=== PATIENT | male | born 2000 | race Caucasian/White ===

== ENCOUNTER 2019-03-08 14:17 | Emergency (ER) | payer BC ==
[2019-03-08 14:30] VITALS: O2SAT 97
--- NOTE | 2019-03-08 14:38 | ED.PDOC ---
History of Present Illness - General Chief Complaint: General Stated Complaint: chest tightness, anxiet Time Seen by Provider: 03/08/19 14:35 Source: patient Exam Limitations: no limitations - History of Present Illness Initial Comments: THIS PATIENT COMES TO THE ED WITH ANXIETY AND A HX OF CHEST PRESSURE ONSET TWO DAYS. HE SAYS THAT THE PRESSURE IS AT 2/10. HE WENT TO SEE HIS PCP AND WAS TOLD TO COME HERE. HE HAS A HX OF ANXIETY AND TAKES NO MEDS. Timing/Duration: other - TWO DAYS Improving Factors: nothing Worsening Factors: nothing Associated Symptoms: chest pain Allergies/Adverse Reactions: Allergies NO KNOWN ALLERGY Allergy (Verified 03/08/19 14:25) Review of Systems - Review of Systems Constitutional: States: no symptoms reported EENTM: States: no symptoms reported Respiratory: States: no symptoms reported Cardiology: States: chest pain Gastrointestinal/Abdominal: States: no symptoms reported Genitourinary: States: no symptoms reported Musculoskeletal: States: no symptoms reported Skin: States: no symptoms reported Neurological: States: no symptoms reported Endocrine: States: no symptoms reported Hematologic/Lymphatic: States: no symptoms reported Past Medical History (General) - Patient Medical History Hx Seizures: No Hx Stroke: No Hx Asthma: No Hx Cardiac Disorders: No Hx Thyroid Disease: No Surgical History: no surgical history - Social History Hx Tobacco Use: Yes Family Medical History - Family History Mother Family History: No Known Physical Exam - Physical Exam General Appearance: Anxious Eye Exam: bilateral normal Ears, Nose, Throat: normal ENT inspection Neck: non-tender, full range of motion, normal inspection Respiratory: chest non-tender, lungs clear Cardiovascular/Chest: normal peripheral pulses, regular rate, rhythm, no gallop, no murmur Gastrointestinal/Abdominal: normal bowel sounds, non tender Rectal Exam: deferred Back Exam: normal inspection Extremity: normal range of motion Neurologic: alert, oriented x 3 Progress - Progress Progress: 03/08/19 15:41 EKG: HR OF 127, ND INTERVAL OF 136, QRS OF 90, QTC OF 433, AXES OF 43. I MPRESSION: SINUS TACHYCARDIA. - Results/Orders Results/Orders: Laboratory Results WBC 8.2 K/mm3 (4.8-10.8) 03/08/19 14:59 RBC 6.04 M/mm3 (4.70-6.10) 03/08/19 14:59 Hgb 17.2 gm/dL (14.0-18.0) 03/08/19 14:59 Hct 50.2 % (42.0-52.0) 03/08/19 14:59 MCV 83.3 fl (80.0-94.0) 03/08/19 14:59 MCH 28.5 pg (27.0-31.0) 03/08/19 14:59 MCHC 34.2 g/dL (33.0-37.0) 03/08/19 14:59 RDW 13.7 % (11.5-14.5) 03/08/19 14:59 Plt Count 267 K/mm3 (130-400) 03/08/19 14:59 MPV 8.3 fl (7.40-10.4) 03/08/19 14:59 Absolute Neuts (auto) 5.60 K/uL (1.8-6.8) 03/08/19 14:59 Absolute Lymphs (auto) 1.60 K/uL (1.0-3.4) 03/08/19 14:59 Absolute Monos (auto) 0.70 K/uL (0.2-0.8) 03/08/19 14:59 Absolute Eos (auto) 0.10 K/uL (0.0-0.4) 03/08/19 14:59 Absolute Basos (auto) 0.10 K/uL (0.0-0.1) 03/08/19 14:59 Neutrophils % 69.0 % (42.0-78.0) 03/08/19 14:59 Lymphocytes % 20.1 % (20.0-50.0) 03/08/19 14:59 Monocytes % 8.5 % (2.0-9.0) 03/08/19 14:59 Eosinophils % 1.7 % (1.0-5.0) 03/08/19 14:59 Basophils % 0.7 % (0.0-2.0) 03/08/19 14:59 D-Dimer, Quantitative 0.26 mg/L FEU (0-0.49) 03/08/19 14:59 Sodium 139 mmol/L (135-145) 03/08/19 14:59 Potassium 3.9 mmol/L (3.6-5.0) 03/08/19 14:59 Chloride 102 mmol/L (101-111) 03/08/19 14:59 Carbon Dioxide 26 mmol/L (21-31) 03/08/19 14:59 Anion Gap 14.9 (12-18) 03/08/19 14:59 BUN 17 mg/dL (7-18) 03/08/19 14:59 Creatinine 1.09 mg/dL (0.6-1.3) 03/08/19 14:59 BUN/Creatinine Ratio 15.6 (10-20) 03/08/19 14:59 Random Glucose 87 mg/dL (70-105) 03/08/19 14:59 Serum Osmolality 278.4 mOsm/L (275-295) 03/08/19 14:59 Calcium 10.1 mg/dL (8.4-10.2) 03/08/19 14:59 Total Bilirubin 0.4 mg/dL (0.2-1.0) 03/08/19 14:59 AST 32 IU/L (10-42) 03/08/19 14:59 ALT 61 IU/L (10-60) H 03/08/19 14:59 Alkaline Phosphatase 69 IU/L (180-700) L 03/08/19 14:59 Troponin I < 0.02 ng/mL (0.01-0.05) 03/08/19 14:59 Serum Total Protein 8.4 gm/dL (6.4-8.2) H 03/08/19 14:59 Albumin 4.6 g/dl (3.2-5.5) 03/08/19 14:59 Globulin 3.8 gm/dL (2.3-3.5) H 03/08/19 14:59 Albumin/Globulin Ratio 1.2 (1.1-1.9) 03/08/19 14:59 Laboratory Results WBC 8.2 K/mm3 (4.8-10.8) 03/08/19 14:59 RBC 6.04 M/mm3 (4.70-6.10) 03/08/19 14:59 Hgb 17.2 gm/dL (14.0-18.0) 03/08/19 14:59 Hct 50.2 % (42.0-52.0) 03/08/19 14:59 MCV 83.3 fl (80.0-94.0) 03/08/19 14:59 MCH 28.5 pg (27.0-31.0) 03/08/19 14:59 MCHC 34.2 g/dL (33.0-37.0) 03/08/19 14:59 RDW 13.7 % (11.5-14.5) 03/08/19 14:59 Plt Count 267 K/mm3 (130-400) 03/08/19 14:59 MPV 8.3 fl (7.40-10.4) 03/08/19 14:59 Absolute Neuts (auto) 5.60 K/uL (1.8-6.8) 03/08/19 14:59 Absolute Lymphs (auto) 1.60 K/uL (1.0-3.4) 03/08/19 14:59 Absolute Monos (auto) 0.70 K/uL (0.2-0.8) 03/08/19 14:59 Absolute Eos (auto) 0.10 K/uL (0.0-0.4) 03/08/19 14:59 Absolute Basos (auto) 0.10 K/uL (0.0-0.1) 03/08/19 14:59 Neutrophils % 69.0 % (42.0-78.0) 03/08/19 14:59 Lymphocytes % 20.1 % (20.0-50.0) 03/08/19 14:59 Monocytes % 8.5 % (2.0-9.0) 03/08/19 14:59 Eosinophils % 1.7 % (1.0-5.0) 03/08/19 14:59 Basophils % 0.7 % (0.0-2.0) 03/08/19 14:59 D-Dimer, Quantitative 0.26 mg/L FEU (0-0.49) 03/08/19 14:59 Sodium 139 mmol/L (135-145) 03/08/19 14:59 Potassium 3.9 mmol/L (3.6-5.0) 03/08/19 14:59 Chloride 102 mmol/L (101-111) 03/08/19 14:59 Carbon Dioxide 26 mmol/L (21-31) 03/08/19 14:59 Anion Gap 14.9 (12-18) 03/08/19 14:59 BUN 17 mg/dL (7-18) 03/08/19 14:59 Creatinine 1.09 mg/dL (0.6-1.3) 03/08/19 14:59 BUN/Creatinine Ratio 15.6 (10-20) 03/08/19 14:59 Random Glucose 87 mg/dL (70-105) 03/08/19 14:59 Serum Osmolality 278.4 mOsm/L (275-295) 03/08/19 14:59 Calcium 10.1 mg/dL (8.4-10.2) 03/08/19 14:59 Total Bilirubin 0.4 mg/dL (0.2-1.0) 03/08/19 14:59 AST 32 IU/L (10-42) 03/08/19 14:59 ALT 61 IU/L (10-60) H 03/08/19 14:59 Alkaline Phosphatase 69 IU/L (180-700) L 03/08/19 14:59 Troponin I < 0.02 ng/mL (0.01-0.05) 03/08/19 14:59 Serum Total Protein 8.4 gm/dL (6.4-8.2) H 03/08/19 14:59 Albumin 4.6 g/dl (3.2-5.5) 03/08/19 14:59 Globulin 3.8 gm/dL (2.3-3.5) H 03/08/19 14:59 Albumin/Globulin Ratio 1.2 (1.1-1.9) 03/08/19 14:59 Departure - Departure Clinical Impression: Chest pain, atypical, Anxiety Time of Disposition: 15:43 Disposition: Discharge to Home or Self Care Condition: Good Departure Forms: ED Discharge - Pt. Copy, Patient Portal Self Enrollment Diet: resume usual diet Activity: walking as tolerated Referrals: Magen Aggarwal MD [Primary Care Provider] - 1-2 Weeks
--- NOTE | 2019-03-08 14:58 | RAD ---
EXAM DESCRIPTION: Chest,1 View CLINICAL HISTORY: 18 years Male, CHEST PAIN COMPARISON: None. TECHNIQUE: Single frontal view of the chest. IMPRESSION: Normal size cardiac silhouette. No lobar or masslike consolidation. No pleural effusion or pneumothorax. Included osseous structures intact. Electronically signed by: Topher Glez MD 03/08/2019 2:56 PM CDT
[2019-03-08 15:56] VITALS: BP 130/90; TEMP 100
== END 2019-03-08 16:01 | disposition home or self-care (01) ==
LOC: ER 14:17
DX: R07.89 Other chest pain (principal); F41.9 Anxiety disorder, unspecified; R00.0 Tachycardia, unspecified; Z87.891 Personal history of nicotine dependence

== ENCOUNTER → 2019-03-11 | Outpatient (CLI) | payer BC | LOC: GMAM 18:27 | PROVIDERS: ATTEND Family Medicine | DX: R00.2 Palpitations (principal) ==

== ENCOUNTER → 2019-04-04 | Outpatient (CLI) | payer BC | LOC: GMAM 10:22 | PROVIDERS: ATTEND Family Medicine | DX: R10.84 Generalized abdominal pain (principal); R35.0 Frequency of micturition ==